=== PATIENT | male | born 1955 | race Caucasian/White ===

== ENCOUNTER 2023-12-07 16:37 | Inpatient (IN) | payer MEDICARE, SELFPAY ==
[2023-12-07] VITALS (8 sets, daily range): BP systolic 113–151; BP diastolic 74–97; PULSE 88–160; RESP 13–20; TEMP 36.4–36.8; O2SAT 93–99; BMI 25.1
--- NOTE | 2023-12-07 16:40 | XRR_ITS ---
PROCEDURE INFORMATION: Exam: XR Chest Exam date and time: 12/07/2023 4:51 PM Age: 68 years old Clinical indication: Cough; Additional info: Dyspnea/cough TECHNIQUE: Imaging protocol: Radiologic exam of the chest. Views: 1 view. COMPARISON: No relevant prior studies available. FINDINGS: Lungs: Lungs are clear. Pleural spaces: There is no pleural effusion or pneumothorax. Heart/Mediastinum: The cardiac silhouette is within normal limits of size given AP technique. 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 There is mild degenerative disease of the right shoulder. XR/XR chest 1V portable [id number] IMPRESSION: No acute findings.
--- NOTE | 2023-12-07 16:41 | ECG_ITS ---
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 Measurements Intervals [place] Rate: 163 P: 0 AR: 0 QRS: 11 QRSD: 69 T: 0 QT: 215 QTc: 355 Interpretive Statements ATRIAL FIBRILLATION WITH RAPID VENTRICULAR RESPONSE MARKED ST DEPRESSION, CONSIDER SUBENDOCARDIAL INJURY [0.2+ mV ST DEPRESSION] ACUTE IA No previous ECG available for comparison Electronically Signed On 12-07-2023 17:12:04 CDT by Maria Luisa Pillai M.D. [id number] f
--- NOTE | 2023-12-07 16:47 | ECG_ITS ---
[facility] Test Date: 2023-12-07 Pat Name: Michael Mcelroy Department: Room: Gender: Male Client Service Executive: : 1955 Requested By: Otto Carranza Order Number: [id number] Юлия MD: Maria Luisa Pillai M.D. Measurements Intervals [place] Rate: 158 P: 0 CT: 0 QRS: 20 QRSD: 77 T: 180 QT: 237 QTc: 384 Interpretive Statements SUPRAVENTRICULAR TACHYCARDIA MARKED ST DEPRESSION, CONSIDER SUBENDOCARDIAL INJURY [0.2+ mV ST DEPRESSION] ACUTE MD No previous ECG available for comparison Electronically Signed On 12-07-2023 17:14:55 CDT by Maria Luisa Pillai M.D. [id number] f
--- NOTE | 2023-12-07 16:47 | PC.NURSE ---
Glucose via fingerstick 126. EMS administered D10 en route.
--- NOTE | 2023-12-07 16:49 | W.ED.ARRPALP ---
HPI - Arrhythmia/Palpitations General: Chief Complaint: Arrhythmia/Palpitations Stated Complaint: hypoglycemia, hypotension Time Seen by Provider: 12/07/23 16:37 Source: patient Mode of arrival: ambulatory History of Present Illness: 68-year-old male presents emergency room via EMS with a rapid heart rate and hypoglycemia. EMS corrected the hypoglycemia in the field his blood sugar was initially 47 increased to 115. He intermittently had rapid heart rates in the 150s and 160s on arrival here he is in atrial fibrillation with rapid ventricular response. He denies any history of coronary disease or any history of arrhythmias. MD complaint: rapid heart beat and heart racing Duration: intermittent Severity: moderate Context: occurred during rest Review of Systems Const: Denies: fever(s) or chills Card: Reports: palpitations and irregular heart rhythm; Denies: chest pain Resp: Denies: dyspnea GI: Denies: abdominal pain : Denies: dysuria, urinary frequency or urinary urgency Musc: Denies: neck pain or back pain Skin/Breast: Denies: rash Physical Exam Const: GENERAL APPEARANCE: cooperative and comfortable ORIENTATION/CONSCIOUSNESS: Yes awake, Yes oriented to person, Yes oriented to place and Yes oriented to time HENMT: COMMON NORMALS: normocephalic, atraumatic and hearing grossly normal bilaterally HEAD & SCALP: normocephalic and atraumatic Resp: COMMON NORMALS: normal respiratory effort, No retractions, No use of accessory muscles and clear to auscultation bilaterally AUSCULTATION: clear to auscultation bilaterally Cardio: COMMON NORMALS: No murmurs present (Cardio) RATE: tachycardic RHYTHM: abnormal rhythm irregularly irregular GI: COMMON NORMALS: Soft to palpation and No hepatosplenomegaly present AUSCULTATION: Yes normoactive bowel sounds PALPATION: Yes Soft to palpation, No Tenderness to palpation present (GI), No Guarding due to palpation present (GI) and Yes No hepatosplenomegaly present Extremity: COMMON NORMALS: normal to inspection, capillary refill normal, no clubbing, cyanosis or edema, no calf tenderness and no pedal edema Neuro: SENSORIUM/ORIENTATION: Yes oriented to person, Yes oriented to place and Yes oriented to time Skin: COMMON NORMALS: no rashes or lesions noted GENERAL SKIN EXAM: no rashes or lesions noted Course Vital Signs: Vital signs: Vital Signs Temperature 98.2 F 12/07/23 16:41 Pulse Rate 99 12/07/23 17:30 Respiratory Rate 16 12/07/23 17:30 Blood Pressure 151/97 12/07/23 17:30 Pulse Oximetry 99 12/07/23 17:25 Oxygen Delivery Me thod Room Air 12/07/23 16:41 MDM - Arrhythmia/Palpitations Medical Decision Making Atrial fibrillation rapid ventricular response of subendocardial changes on his EKG initially well at a rapid rate these resolved with slowing his rate his blood pressure also improved. Because of subendocardial changes they did heparinize him he is intermittently in the normal sinus rhythm and back into atrial fibrillation now will admit discussed with hospitalist orders written continue Brenda maguire. Medical Records I reviewed the patient's medical records. Lab Data I reviewed the patient's lab results. 12/07/23 16:44 12/07/23 16:44 Radiology Impressions Chest X-Ray 12/07/23 16:40 IMPRESSION: No acute findings. Laboratory Results WBC 18.86 10^3/uL (3.29-11.43) H 12/07/23 16:44 RBC 2.96 10^6/uL (3.85-5.65) L 12/07/23 16:44 Hgb 8.70 g/dL (11.27-16.99) L 12/07/23 16:44 Hct 27.6 % (37-53) L 12/07/23 16:44 MCV 93.2 fl (82-101) 12/07/23 16:44 MCH 29.4 pg (27-33) 12/07/23 16:44 MCHC 31.5 g/dL (30-55) 12/07/23 16:44 RDW 15.2 % (12.1-15.1) H 12/07/23 16:44 Plt Count 364 10^3/cmm (157-399) 12/07/23 16:44 MPV 9.2 fL (7.4-10.4) 12/07/23 16:44 Neut % (Auto) 93.3 % 12/07/23 16:44 Lymph % (Auto) 2.7 % 12/07/23 16:44 [place] % (Auto) 2.8 % 12/07/23 16:44 Eos % (Auto) 0.1 % 12/07/23 16:44 Baso % (Auto) 0.1 % 12/07/23 16:44 Neut # (Auto) 17.61 10^3/uL (1.8-7.7) H 12/07/23 16:44 Lymph # (Auto) 0.5 10^3/uL (0.8-4.8) L 12/07/23 16:44 [place] # (Auto) 0.5 10^3/uL (0.2-0.9) 12/07/23 16:44 Eos # (Auto) 0.0 10^3/uL (0.0-0.8) 12/07/23 16:44 Baso # (Auto) 0.0 10^3/uL (0.0-0.1) 12/07/23 16:44 Nucleated RBC % (auto) 0 % 12/07/23 16:44 Nucleated RBCs # 0.0 /100WBC 12/07/23 16:44 Specimen Type Arterial 12/07/23 17:00 Sample Site Radial, left 12/07/23 17:00 ABG pH 7.38 (7.35-7.45) 12/07/23 17:00 ABG pCO2 29.1 mmHg (35-45) L 12/07/23 17:00 ABG pO2 106.0 mmHg (80.0-100.0) H 12/07/23 17:00 ABG PO2/FiO2 Ratio 0 12/07/23 17:00 ABG HCO3 17.3 mmol/L (22-26) L 12/07/23 17:00 ABG O2 Saturation 97.8 12/07/23 17:00 ABG Base Excess -6.8 mmol/L (-2.0-2.0) L 12/07/23 17:00 Angel Test Pos 12/07/23 17:00 A-a O2 Gradient 0.8 mmHg (5-10) L 12/07/23 17:00 Hematocrit 31.5 % (42-52) L 12/07/23 17:00 Hgb O2 Saturation 97.2 % (95-100) 12/07/23 17:00 Carboxyhemoglobin 0.1 %THgb (0.4-20.1) L 12/07/23 17:00 Methemoglobin 0.6 % (0.4-1.5) 12/07/23 17:00 Total Hemoglobin 10.3 g/dL (14-18) L 12/07/23 17:00 Sodium 141.0 mmol/L (131-143) 12/07/23 17:00 Potassium 3.4 mmol/L (3.5-5.0) L 12/07/23 17:00 Glucose 51.0 mg/dL (70-115) L 12/07/23 17:00 Ionized Calcium 1.2 mmol/L (1.1-1.4) 12/07/23 17:00 O2 Delivery Device Room air 12/07/23 17:00 FiO2 21.0 % 12/07/23 17:00 Service Establishment Attendant ID [place] 12/07/23 17:00 Sodium 136 mmol/L (136-145) 12/07/23 16:44 Potassium 3.2 mmol/L (3.5-5.1) L 12/07/23 16:44 Chloride 103 mmol/L (98-107) 12/07/23 16:44 Carbon Dioxide 17 mmol/L (22-29) L 12/07/23 16:44 Anion Gap 19.2 (5-19) H 12/07/23 16:44 BUN 36 mg/dL (8-23) H 12/07/23 16:44 Creatinine 1.6 mg/dL (0.7-1.2) H 12/07/23 16:44 GFR Calculation 43.1 mL/min (90-130) L 12/07/23 16:44 Glucose 119 mg/dL (65-115) H 12/07/23 16:44 Calculated Osmolality 291 mOsm/kg (285-295) 12/07/23 16:44 Lactic Acid 1.3 mmol/L (0.5-2.2) 12/07/23 16:44 Calcium 8.2 mg/dL (8.5-10.5) L 12/07/23 16:44 Total Bilirubin 0.2 mg/dL (0.15-1.2) 12/07/23 16:44 AST 17 U/L (0-40) 12/07/23 16:44 ALT 10 U/L (0-41) 12/07/23 16:44 Alkaline Phosphatase 125 U/L (40-130) 12/07/23 16:44 Creatine Kinase 228 U/L (39-308) 12/07/23 16:44 Troponin T Baseline 11 ng/L (0-15) 12/07/23 16:44 Total Protein 6.9 g/dL (6.6-8.7) 12/07/23 16:44 Albumin 2.7 g/dL (3.5-5.2) L 12/07/23 16:44 Globulin 4.2 g/dL (1.3-4.6) 12/07/23 16:44 Urine Color Yellow (Yellow) 12/07/23 17:04 Urine Appearance Cloudy (CLEAR) A 12/07/23 17:04 Urine pH 6 (5-7) 12/07/23 17:04 Ur Specific [place] 1.015 (1.005-1.030) 12/07/23 17:04 Urine Protein 1+ (Negative) H 12/07/23 17:04 Urine Glucose (UA) Norm (Normal) 12/07/23 17:04 Urine Ketones Negative (Negative) 12/07/23 17:04 Urine Blood 3+ (Negative) H 12/07/23 17:04 Urine Nitrate Negative (Negative) 12/07/23 17:04 Urine Bilirubin Neg (Negative) 12/07/23 17:04 Urine Urobilinogen Norm mg/dL (Negative) 12/07/23 17:04 Ur Leukocyte Esterase 2+ (Negative) H 12/07/23 17:04 Urine RBC 0-4 /hpf (0-2) H 12/07/23 17:04 Urine WBC Too numerous to cnt /hpf (0-5) H 12/07/23 17:04 Ur Squamous Epith Cells None /hpf (0-5) 12/07/23 17:04 Amorphous Sediment Not Reportable 12/07/23 17:04 Urine Bacteria 2+ /hpf (NONE) H 12/07/23 17:04 Urine Opiates Screen Negative ng/mL (Negative) 12/07/23 17:04 Ur Barbiturates Screen Negative ng/mL (Negative) 12/07/23 17:04 Ur Phencyclidine Scrn Negative ng/mL (Negative) 12/07/23 17:04 Ur Amphetamines Screen Negative ng/mL (Negative) 12/07/23 17:04 U Benzodiazepines Scrn Positive ng/mL (Negative) H 12/07/23 17:04 Urine Cocaine Screen Negative ng/mL (Negative) 12/07/23 17:04 U Marijuana (THC) Screen Negative ng/mL (Negative) 12/07/23 17:04 Ethyl Alcohol < 10 mg/dL (0-10) 12/07/23 16:44 Serum Ketones Negative (Negative) 12/07/23 16:44 All radiology interpretation(s) finalized by discharge Discharge Plan Discharge Patient Disposition: Admitted As Inpatient Clinical Impression: Atrial fibrillation, Hypoglycemia, Acute electrocardiogram changes Condition: Stable Coding Level of Care Code ED Iron Installer for Cullen Vasquez
--- NOTE | 2023-12-07 16:51 | PC.NURSE ---
Medication Delay: Heparin and Diltiazem ordered @1645 delayed d/t not being verified.
[2023-12-07 16:54] LABS: Basophils % 0.1 %; Eosinophils % 0.1 %; Hematocrit 27.6 % (37-53); Lymphocytes # 0.5 10^3/uL (0.8-4.8); Lymphocytes % 2.7 %; Mean Corpuscular HGB Conc 31.5 g/dL (30-55); Mean Corpuscular Hemoglobin 29.4 pg (27-33); Mean Corpuscular Volume 93.2 fl (82-101); Mean Platelet Volume 9.2 fL (7.4-10.4); Monocytes # 0.5 10^3/uL (0.2-0.9); Monocytes % 2.8 %; Neutrophils # 17.61 10^3/uL (1.8-7.7); Neutrophils % 93.3 %; Nucleated Red Blood Cells % 0 %; Platelet Count 364 10^3/cmm (157-399); Red Blood Count 2.96 10^6/uL (3.85-5.65); Red Cell Distribution Width 15.2 % (12.1-15.1); White Blood Count 18.86 10^3/uL (3.29-11.43)
[2023-12-07 17:10] LABS: Alanine Aminotransferase 10 U/L (0-41); Albumin Level 2.7 g/dL (3.5-5.2); Alkaline Phosphatase 125 U/L (40-130); Anion Gap 19.2 (5-19); Aspartate Amino Transferase 17 U/L (0-40); Blood Urea Nitrogen 36 mg/dL (8-23); Calcium 8.2 mg/dL (8.5-10.5); Carbon Dioxide 17 mmol/L (22-29); Chloride 103 mmol/L (98-107); Creatinine Clr Calc Pharmacy 47.9736; Globulin 4.2 g/dL (1.3-4.6); Glomerular Filtration Rate 43.1 mL/min (90-130); Glucose 119 mg/dL (65-115); Osmolality Calculated 291 mOsm/kg (285-295); Potassium 3.2 mmol/L (3.5-5.1); Sodium 136 mmol/L (136-145); Total Bilirubin 0.2 mg/dL (0.15-1.2); Total Protein 6.9 g/dL (6.6-8.7)
[2023-12-07 17:11] LABS: ABG PCO2 29.1 mmHg (35-45); ABG PH Result 7.38 (7.35-7.45); Alveolar-Arterial Oxygen Gradi 0.8 mmHg (5-10); Arterial Blood Gas Hematocrit 31.5 % (42-52); Base Excess ABG -6.8 mmol/L (-2.0-2.0); Blood Gas Allen Test Pos; Blood Gas Operator Identificat WALCI; Blood Gas Sample Site Radial, left; Blood Gas Sample Type Arterial; Carboxyhemoglobin 0.1 %THgb (0.4-20.1); HCO3 ABG 17.3 mmol/L (22-26); HGB O2 Sat 97.2 % (95-100); Ionized Calcium Level - ABG 1.2 mmol/L (1.1-1.4); Methemoglobin 0.6 % (0.4-1.5); Oxygen Device ROOM AIR; Oxygen Saturation ABG 97.8; PO2 FiO2 Ratio Arterial Blood 0; Potassium Level - ABG 3.4 mmol/L (3.5-5.0); Total Hemoglobin 10.3 g/dL (14-18)
[2023-12-07 17:12] LABS: Alcohol Level < 10 mg/dL (0-10)
[2023-12-07 17:13] LABS: Troponin(5th) Baseline 11 ng/L (0-15)
[2023-12-07] MEDS: dilTIAZem 5 mg/mL SDV 5 mL 20 MG IVP (17:15)
[2023-12-07 17:16] LABS: Ketone (Acetest) Serum Negative (Negative)
[2023-12-07] MEDS: heparin 5,000 unit/mL INJ 1 mL IV (17:16)
[2023-12-07 17:19] LABS: Creatine Phosphokinase 228 U/L (39-308); Lactic Sepsis W/Reflex 1.3 mmol/L (0.5-2.2)
[2023-12-07] MEDS: heparin drip 25,000 UNIT/500 ML PREMIX 22.8599999999999994 UNIT IV (17:21)
[2023-12-07] MEDS: dilTIAZem 100 MG in sodium chloride 0.9% (add-van) 100 ML IV (17:23)
[2023-12-07 17:43] LABS: Add Urine Microscopic? YES; Bilirubin Urine Neg (Negative); Blood Urine 3+ (Negative); Glucose Urine UA Norm (Normal); Ketones Urine Negative (Negative); Leukocyte Esterase Urine 2+ (Negative); Nitrate Urine Negative (Negative); Protein Urine 1+ (Negative); Specific Gravity, Urine 1.015 (1.005-1.030); Urine Appearance Cloudy (CLEAR); Urine Color Yellow (Yellow); Urobilinogen Urine Norm (Negative); pH Urine 6 (5-7)
[2023-12-07 17:45] LABS: Amphetamines Screen Urine Negative (Negative); Barbiturates Screen Urine Negative (Negative); Benzodiazepines Screen Urine Positive (Negative); Cocaine Screen Urine Negative (Negative); Opiate Screen Urine Negative (Negative); PCP Screen Urine Negative (Negative); THC Screen Urine Negative (Negative)
[2023-12-07 17:46] LABS: RBC Urine 0-4 /hpf (0-2); WBC Urine TOO NUMEROUS TO CNT /hpf (0-5)
[2023-12-07 17:47] LABS: Add Urine Culture? Yes; Bacteria Urine 2+ /hpf
[2023-12-07 18:01] LABS: Glucose Point of Care 123 mg/dL (70-110)
--- NOTE | 2023-12-07 18:02 | W.ED.ARRPALP ---
HPI - Arrhythmia/Palpitations General: Chief Complaint: Arrhythmia/Palpitations Stated Complaint: hypoglycemia, hypotension Time Seen by Provider: 12/07/23 16:37 Source: patient Mode of arrival: ambulatory History of Present Illness: 68-year-old male presents emergency room via EMS with complaints of hypoglycemia and hypotension and rapid heart rates. 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 When they arrived his blood sugar was at 47 he was treated with glucagon D10 and his blood sugar improved to 115 in the field when he arrived here his blood pressure was 126. On arrival here he is in A-fib with RVR with a heart rate in the 160s. Initial EKG shows subendocardial ischemia and VT 2 through V6 along with 1-3 and aVF. Patient denies chest pain. He denies any history of atrial fibrillation or coronary artery disease. MD complaint: rapid heart beat and heart racing Context: occurred during rest Course Vital Signs: Vital signs: Vital Signs Temperature 98.2 F 12/07/23 16:41 Pulse Rate 99 12/07/23 17:30 Respiratory Rate 16 12/07/23 17:30 Blood Pressure 151/97 12/07/23 17:30 Pulse Oximetry 99 12/07/23 17:25 Oxygen Delivery Me thod Room Air 12/07/23 16:41 MDM - Arrhythmia/Palpitations Medical Decision Making Patient presents with hypoglycemia initially in the field that were corrected he still in A-fib with subendocardial changes while the rate was high once her rate was corrected hypotension and subendocardial changes both resolved. Patient does have significant leukocytosis has a cystitis on UA cultures done and was started on ceftriaxone. Discussed with hospitalist orders written Medical Records I reviewed the patient's medical records. Lab Data I reviewed the patient's lab results. 12/07/23 16:44 12/07/23 16:44 Radiology Impressions Chest X-Ray 12/07/23 16:40 IMPRESSION: No acute findings. Laboratory Results WBC 18.86 10^3/uL (3.29-11.43) H 12/07/23 16:44 RBC 2.96 10^6/uL (3.85-5.65) L 12/07/23 16:44 Hgb 8.70 g/dL (11.27-16.99) L 12/07/23 16:44 Hct 27.6 % (37-53) L 12/07/23 16:44 MCV 93.2 fl (82-101) 12/07/23 16:44 MCH 29.4 pg (27-33) 12/07/23 16:44 MCHC 31.5 g/dL (30-55) 12/07/23 16:44 RDW 15.2 % (12.1-15.1) H 12/07/23 16:44 Plt Count 364 10^3/cmm (157-399) 12/07/23 16:44 MPV 9.2 fL (7.4-10.4) 12/07/23 16:44 Neut % (Auto) 93.3 % 12/07/23 16:44 Lymph % (Auto) 2.7 % 12/07/23 16:44 [place] % (Auto) 2.8 % 12/07/23 16:44 Eos % (Auto) 0.1 % 12/07/23 16:44 Baso % (Auto) 0.1 % 12/07/23 16:44 Neut # (Auto) 17.61 10^3/uL (1.8-7.7) H 12/07/23 16:44 Lymph # (Auto) 0.5 10^3/uL (0.8-4.8) L 12/07/23 16:44 [place] # (Auto) 0.5 10^3/uL (0.2-0.9) 12/07/23 16:44 Eos # (Auto) 0.0 10^3/uL (0.0-0.8) 12/07/23 16:44 Baso # (Auto) 0.0 10^3/uL (0.0-0.1) 12/07/23 16:44 Nucleated RBC % (auto) 0 % 12/07/23 16:44 Nucleated RBCs # 0.0 /100WBC 12/07/23 16:44 Specimen Type Arterial 12/07/23 17:00 Sample Site Radial, left 12/07/23 17:00 ABG pH 7.38 (7.35-7.45) 12/07/23 17:00 ABG pCO2 29.1 mmHg (35-45) L 12/07/23 17:00 ABG pO2 106.0 mmHg (80.0-100.0) H 12/07/23 17:00 ABG PO2/FiO2 Ratio 0 12/07/23 17:00 ABG HCO3 17.3 mmol/L (22-26) L 12/07/23 17:00 ABG O2 Saturation 97.8 12/07/23 17:00 ABG Base Excess -6.8 mmol/L (-2.0-2.0) L 12/07/23 17:00 Angel Test Pos 12/07/23 17:00 A-a O2 Gradient 0.8 mmHg (5-10) L 12/07/23 17:00 Hematocrit 31.5 % (42-52) L 12/07/23 17:00 Hgb O2 Saturation 97.2 % (95-100) 12/07/23 17:00 Carboxyhemoglobin 0.1 %THgb (0.4-20.1) L 12/07/23 17:00 Methemoglobin 0.6 % (0.4-1.5) 12/07/23 17:00 Total Hemoglobin 10.3 g/dL (14-18) L 12/07/23 17:00 Sodium 141.0 mmol/L (131-143) 12/07/23 17:00 Potassium 3.4 mmol/L (3.5-5.0) L 12/07/23 17:00 Glucose 51.0 mg/dL (70-115) L 12/07/23 17:00 Ionized Calcium 1.2 mmol/L (1.1-1.4) 12/07/23 17:00 O2 Delivery Device Room air 12/07/23 17:00 FiO2 21.0 % 12/07/23 17:00 Cad Librarian ID [place] 12/07/23 17:00 Sodium 136 mmol/L (136-145) 12/07/23 16:44 Potassium 3.2 mmol/L (3.5-5.1) L 12/07/23 16:44 Chloride 103 mmol/L (98-107) 12/07/23 16:44 Carbon Dioxide 17 mmol/L (22-29) L 12/07/23 16:44 Anion Gap 19.2 (5-19) H 12/07/23 16:44 BUN 36 mg/dL (8-23) H 12/07/23 16:44 Creatinine 1.6 mg/dL (0.7-1.2) H 12/07/23 16:44 GFR Calculation 43.1 mL/min (90-130) L 12/07/23 16:44 Glucose 119 mg/dL (65-115) H 12/07/23 16:44 POC Glucose 123 mg/dL (70-110) H 12/07/23 17:57 Calculated Osmolality 291 mOsm/kg (285-295) 12/07/23 16:44 Lactic Acid 1.3 mmol/L (0.5-2.2) 12/07/23 16:44 Calcium 8.2 mg/dL (8.5-10.5) L 12/07/23 16:44 Total Bilirubin 0.2 mg/dL (0.15-1.2) 12/07/23 16:44 AST 17 U/L (0-40) 12/07/23 16:44 ALT 10 U/L (0-41) 12/07/23 16:44 Alkaline Phosphatase 125 U/L (40-130) 12/07/23 16:44 Creatine Kinase 228 U/L (39-308) 12/07/23 16:44 Troponin T Baseline 11 ng/L (0-15) 12/07/23 16:44 Total Protein 6.9 g/dL (6.6-8.7) 12/07/23 16:44 Albumin 2.7 g/dL (3.5-5.2) L 12/07/23 16:44 Globulin 4.2 g/dL (1.3-4.6) 12/07/23 16:44 Urine Color Yellow (Yellow) 12/07/23 17:04 Urine Appearance Cloudy (CLEAR) A 12/07/23 17:04 Urine pH 6 (5-7) 12/07/23 17:04 Ur Specific [place] 1.015 (1.005-1.030) 12/07/23 17:04 Urine Protein 1+ (Negative) H 12/07/23 17:04 Urine Glucose (UA) Norm (Normal) 12/07/23 17:04 Urine Ketones Negative (Negative) 12/07/23 17:04 Urine Blood 3+ (Negative) H 12/07/23 17:04 Urine Nitrate Negative (Negative) 12/07/23 17:04 Urine Bilirubin Neg (Negative) 12/07/23 17:04 Urine Urobilinogen Norm mg/dL (Negative) 12/07/23 17:04 Ur Leukocyte Esterase 2+ (Negative) H 12/07/23 17:04 Urine RBC 0-4 /hpf (0-2) H 12/07/23 17:04 Urine WBC Too numerous to cnt /hpf (0-5) H 12/07/23 17:04 Ur Squamous Epith Cells None /hpf (0-5) 12/07/23 17:04 Amorphous Sediment Not Reportable 12/07/23 17:04 Urine Bacteria 2+ /hpf (NONE) H 12/07/23 17:04 Urine Opiates Screen Negative ng/mL (Negative) 12/07/23 17:04 Ur Barbiturates Screen Negative ng/mL (Negative) 12/07/23 17:04 Ur Phencyclidine Scrn Negative ng/mL (Negative) 12/07/23 17:04 Ur Amphetamines Screen Negative ng/mL (Negative) 12/07/23 17:04 U Benzodiazepines Scrn Positive ng/mL (Negative) H 12/07/23 17:04 Urine Cocaine Screen Negative ng/mL (Negative) 12/07/23 17:04 U Marijuana (THC) Screen Negative ng/mL (Negative) 12/07/23 17:04 Ethyl Alcohol < 10 mg/dL (0-10) 12/07/23 16:44 Serum Ketones Negative (Negative) 12/07/23 16:44 All radiology interpretation(s) finalized by discharge Discharge Plan Discharge Patient Disposition: Admitted As Inpatient Clinical Impression: Atrial fibrillation, Hypoglycemia, Acute electrocardiogram changes, Cystitis Condition: Stable Coding Level of Care Code ED Parachutist/Combatant Diver Qualified for Cullen Vasquez
[2023-12-07 18:11] LABS: Chol HDL Ratio 3.59 mg/dL (1.0-5.00); Cholesterol 140 mg/dL (0-200); HDL Cholesterol 39 mg/dL (60-100); LDL Cholesterol Calculated 74 mg/dL (50-129); Triglycerides 134 mg/dL (0-150)
[2023-12-07] MEDS: sodium chloride 0.9% 500 ML 999 ML IV (18:16)
--- NOTE | 2023-12-07 18:16 | PC.NURSE ---
Medication Delay: Rochepin ordered @1802 delayed d/t needing blood cultures drawn.
--- NOTE | 2023-12-07 18:29 | PC.NURSE ---
Attempted Report x1 to [facility] @1969, no answer.
--- NOTE | 2023-12-07 18:34 | PM.HP ---
Providers/Chief Complaint Admitting Physician: Linnea Kathleen MD Chief Complaint: hypoglycemia, hypotension History of Present Illness Michael Mcelroy is a 68 year old male, typically resident of [facility] by occupation, currently passing through the [place] area. He was sitting down to have lunch today when his reported patient suddenly became very dizzy and became unresponsive. EMS was called in, patient was noted to be hypoglycemic and he was brought into the emergency room for the same. Upon arrival his blood sugar was 47, currently improved to 115 after being given glucagon and D10. He was also found to have A-fib with RVR with heart rate in the 160s. Patient tells me he is not a diabetic. However also states that he does not know any of his medications. States that his would be coming by later with a list of his medications. Does not offer any other prior history. Denies known history of atrial fibrillation. Denies history of coronary artery disease. Denies any current chest pain dyspnea palpitations prior to the episode today. He is currently on a Cardizem infusion with improvement in his heart rate. Denies any recent fever chills nausea vomiting. Review of Systems General: Reports: 10 or more systems reviewed and unremarkable except in HPI and below Const: Denies: fever(s), chills or body aches Eyes: Denies: change in vision, blurry vision or photophobia ENMT: Reports: hoarseness; Denies: throat pain, enlarged tonsils, odynophagia or nasal congestion Card: Denies: chest pain, palpitations, irregular heart rhythm, edema, swelling of feet/ankles, lightheadedness, pre-syncope, dyspnea on exertion or orthopnea Resp: Denies: dyspnea, productive cough, non-productive cough, wheezing, stridor, pain on inspiration, change in phlegm color, hemoptysis or chest congestion GI: Denies: abdominal pain, nausea, vomiting, hematemesis, coffee ground emesis, dysphagia, heartburn, diarrhea, constipation, GI cramping, change in stool character, hematochezia or melena : Denies: flank pain, dysuria, urinary frequency, urinary urgency, urinary hesitancy or hematuria Musc: Denies: neck pain, back pain, extremity pain, joint swelling, joint warmth or deformity Neuro: Denies: headache(s), numbness in extremities, weakness in extremities, sensory changes, difficulty walking, frequent falls, dizziness, vertigo, behavioral changes, Slurred speech present or seizure-like activity Psych: Denies: anxiety, depression, suicidal ideation or homicidal ideation Endo: Denies: polyuria, polydipsia, tired all the time, cold intolerance or hot flashes Laurent/Lymph: Denies: easy bruising or easy bleeding Medications/Allergies Home Medications Medication Instructions Recorded Confirmed Last Taken Type ascorbic acid (vitamin C) 250 mg 250 mg PO DAILY 12/08/23 12/08/23 Unknown History tablet (Vitamin C) calcium carbonate 600 mg calcium 600 mg PO DAILY 12/08/23 12/08/23 Unknown History (1,500 mg) tablet (Calcium) diclofenac sodium 75 mg 75 mg PO BID 12/08/23 12/08/23 Unknown History tablet,delayed release enzalutamide 40 mg tablet (Xtandi) 160 mg PO QPM 12/08/23 12/08/23 Unknown History glimepiride 2 mg tablet 2 mg PO DAILY 12/08/23 12/08/23 Unknown History rosuvastatin 20 mg tablet 20 mg PO QPM 12/08/23 12/08/23 Unknown History sulfamethoxazole 800 1 tab PO QPM 12/08/23 12/08/23 Unknown History mg-trimethoprim 160 mg tablet tamsulosin 0.4 mg capsule 0.4 mg PO QPM 12/08/23 12/08/23 Unknown History tolterodine 4 mg capsule,extended 4 mg PO QPM 12/08/23 12/08/23 Unknown History release 24 hr tramadol 50 mg tablet 50 mg PO BID PRN Pain 12/08/23 12/08/23 Unknown History vitamin B12 0.5 mg-folic acid 1 mg 2 tab PO DAILY 12/08/23 12/08/23 Unknown History tablet Allergies Allergy/AdvReac Type Severity Reaction Status Date / Time No Known Allergies Allergy Verified 12/07/23 18:27 Vitals/I&O/Wt Last Vital Signs Temp 98.2 F 12/07/23 16:41 Pulse 99 12/07/23 17:30 Resp 16 12/07/23 17:30 BP 151/97 12/07/23 17:30 Pulse Ox 99 12/07/23 17:25 O2 Del Method Room Air 12/07/23 16:41 12/07/23 12/07/23 12/07/23 06:59 14:59 22:59 Intake Total 4.417 / 4.417 Balance 4.417 / 4.417 Weight last 48 hrs Weight 81.647 kg Physical Exam Narrative: General: No acute distress, AO x3 HEENT: PERRLA, pupils bilaterally equal and reactive, pallors not present Chest: Normal vesicular breath sounds, no added sounds, equal good air entry bilaterally CVS: S1-S2 regular, no murmurs, no tachycardia, no gallops, no rubs Abdomen: Soft, nontender, no organomegaly, bowel sounds present Neuro: No focal deficits, no facial deformity, AO x3, power 5/5 in all limbs Data 12/08/23 06:32 12/08/23 06:32 Micro: Microbiology 12/07/23 17:10 Blood Culture - Preliminary Blood SPECIMEN COLLECTED A&P Assessment and plan (1) Atrial fibrillation: Atrial fibrillation with heart rate 1 50-1 60 upon admission. New diagnosis for the patient Noted to have ST depression with tachycardia, this appears to have resolved with improvement in heart rate. Baseline troponin currently at 11. Denies any chest pain. Low concern for ACS at this point in time. Will trend troponins at 2 and 6 hours. Currently started on a heparin infusion in the emergency room which we will continue. Discussed starting oral DOAC's with him, states that he would like to defer decisions until his comes in with a list of his existing medications. Currently on a Cardizem infusion which we will continue. Heart rate is improving currently on Cardizem at 5 mg an hour. Overlap with p.o. Cardizem 30 mg every 6 hours and monitor for response. Echocardiogram given new onset A-fib. (2) Hypoglycemia: Hypoglycemia, blood sugar at 47 initially. Currently he is symptomatically improved after correction in his blood sugar Continue to check blood sugar hourly and then switch to every 4 hours once stable. Encourage oral intake. Patient states he is not a known diabetic however does not know list of his medications either. We will await his to bring these in. If not available will reach out to his pharmacy in the morning hours. Check HbA1c. (3) Cystitis: UA positive for 2+ leukocyte esterase, numerous WBCs Denies any current dysuria. Denies any recent fever chills nausea vomiting. Denies any history of recurrent UTIs. Urine culture ordered Start ceftriaxone 1 g IV every 24 hours while pending results of urine culture Obtain stat blood cultures. Leukocytosis may be attributable to dehydration versus acute cystitis. Plan DVT prophylaxis: Currently on a heparin drip which will suffice Full code Attestations Medical Necessity Statement*: Anticipate greater than 2 midnight admission for new onset A-fib with RVR, hypoglycemia needing further evaluation, UTI needing IV antibiotics. Coding Level of Care Code Acute Code for Chg Fwd High MDM includes number and complexity of problems actively addressed during encounter, amount and/or complexity of data reviewed/ordered and described risk of complication, morbidity or mortality of management as documented Diagnoses Atrial fibrillation I48.91 Hypoglycemia E16.2 Cystitis N30.90
--- NOTE | 2023-12-07 18:40 | PC.NURSE ---
Medication Delay: Diltiazem 30mg PO and Rocephin 1,000mg @1845 delayed d/t not being verified.
--- NOTE | 2023-12-07 18:42 | PC.NURSE ---
Medication Delay: blood cultures not drawn at this time, Rocephin ordered @1802 delayed. x2 unsuccessful blood draw attempts.
--- NOTE | 2023-12-07 18:46 | ECG_ITS ---
[facility] Test Date: 2023-12-07 Pat Name: Michael Mcelroy Department: Room: Gender: Male [employer]: : 1955 Requested By: Otto Carranza Order Number: [id number] Юлия MD: Maria Luisa Pillai M.D. Measurements Intervals [place] Rate: 109 P: 63 [place]: 136 QRS: 28 QRSD: 77 T: 51 QT: 355 QTc: 479 Interpretive Statements SINUS TACHYCARDIA WITH OCCASIONAL VENTRICULAR PREMATURE COMPLEXES WITH OCCASIONAL SUPRAVENTRICULAR PREMATURE COMPLEXES MODERATE ST DEPRESSION [0.05+ mV ST DEPRESSION] Compared to ECG 12/07/2023 16:47:45 Ventricular premature complex(es) now present Supraventricular tachycardia no longer present ST (T wave) deviation still present Electronically Signed On 12-07-2023 17:41:51 CDT by Maria Luisa Pillai M.D. [email or web address]
[2023-12-07 19:18] LABS: Troponin 5 2HR 10.04 ng/L (0-15); Troponin 5 2HR Delta -0.96 ABS# (0-10)
[2023-12-07 20:34] LABS: Glucose Point of Care 37 mg/dL (70-110)
[2023-12-07 20:34] LABS: Glucose Point of Care 31 mg/dL (70-110)
[2023-12-07] MEDS: glucagon 1 mg/mL KIT 1 mL IM (20:40)
[2023-12-07] MEDS: dextrose 5 % 500 ML 1000 ML IV (20:45)
[2023-12-07 20:49] LABS: Estmated Average Glucose 117; Hemoglobin A1C 5.7 % (4.0-6.0)
[2023-12-07] MEDS: dilTIAZem 30 mg Tablet PO (21:06)
[2023-12-07] MEDS: dextrose 10% 1,000 ML 75 ML IV (21:08)
[2023-12-07] MEDS: cefTRIAXone 1,000 MG in sodium chloride 0.9% (plus) 50 ML 100 MG IV (21:12)
[2023-12-07 22:01] LABS: Glucose Point of Care 37 mg/dL (70-110)
[2023-12-07 22:01] LABS: Glucose Point of Care 116 mg/dL (70-110)
[2023-12-07 22:01] LABS: Glucose Point of Care 80 mg/dL (70-110)
[2023-12-07 22:23] LABS: Glucose Point of Care 153 mg/dL (70-110)
[2023-12-07 23:14] LABS: Glucose Point of Care 120 mg/dL (70-110)
[2023-12-07 23:58] LABS: Troponin 5 6HR 14.52 ng/L (0-15); Troponin 5 6HR Delta 3.52 ng/L (0-12)
[2023-12-07 23:59] LABS: Partial Thromboplastin Time 86.3 SECONDS (23.9-36.7)
[2023-12-08] VITALS (9 sets, daily range): BP systolic 102–142; BP diastolic 53–86; PULSE 80–124; RESP 16–31; TEMP 36.6–37.4; O2SAT 95–99
[2023-12-08] MEDS: dilTIAZem 30 mg Tablet PO ×3 (00:24→11:25)
[2023-12-08 01:33] LABS: Glucose Point of Care 86 mg/dL (70-110)
[2023-12-08 01:33] LABS: Glucose Point of Care 63 mg/dL (70-110)
[2023-12-08 03:07] LABS: Glucose Point of Care 68 mg/dL (70-110)
[2023-12-08 03:07] LABS: Glucose Point of Care 66 mg/dL (70-110)
[2023-12-08] MEDS: dextrose 10% 250 ML 1000 ML IV (04:44)
[2023-12-08 05:17] LABS: Glucose Point of Care 119 mg/dL (70-110)
[2023-12-08 05:17] LABS: Glucose Point of Care 54 mg/dL (70-110)
[2023-12-08 05:17] LABS: Glucose Point of Care 48 mg/dL (70-110)
[2023-12-08 06:50] LABS: Basophils % 0.2 %; Eosinophils # 0.1 10^3/uL (0.0-0.8); Eosinophils % 0.3 %; Hematocrit 29.3 % (37-53); Lymphocytes # 0.9 10^3/uL (0.8-4.8); Lymphocytes % 4.8 %; Mean Corpuscular HGB Conc 31.7 g/dL (30-55); Mean Corpuscular Hemoglobin 29.2 pg (27-33); Mean Corpuscular Volume 91.8 fl (82-101); Mean Platelet Volume 9.2 fL (7.4-10.4); Monocytes # 0.5 10^3/uL (0.2-0.9); Monocytes % 2.7 %; Neutrophils # 17.48 10^3/uL (1.8-7.7); Neutrophils % 90.8 %; Nucleated Red Blood Cells % 0 %; Platelet Count 400 10^3/cmm (157-399); Red Blood Count 3.19 10^6/uL (3.85-5.65); Red Cell Distribution Width 15.1 % (12.1-15.1); White Blood Count 19.23 10^3/uL (3.29-11.43)
[2023-12-08 06:53] LABS: Glucose Point of Care 70 mg/dL (70-110)
[2023-12-08 06:53] LABS: Glucose Point of Care 43 mg/dL (70-110)
[2023-12-08 07:03] LABS: Chloride 104 mmol/L (98-107); Potassium 3.8 mmol/L (3.5-5.1); Sodium 136 mmol/L (136-145)
[2023-12-08 07:07] LABS: Partial Thromboplastin Time 78.5 SECONDS (23.9-36.7)
[2023-12-08 07:24] LABS: Alanine Aminotransferase 12 U/L (0-41); Alkaline Phosphatase 127 U/L (40-130); Anion Gap 19.8 (5-19); Aspartate Amino Transferase 18 U/L (0-40); Blood Urea Nitrogen 26 mg/dL (8-23); Calcium 8.6 mg/dL (8.5-10.5); Carbon Dioxide 16 mmol/L (22-29); Osmolality Calculated 283 mOsm/kg (285-295); Total Bilirubin 0.2 mg/dL (0.15-1.2)
[2023-12-08 07:29] LABS: Glucose 38 mg/dL (65-115)
[2023-12-08 07:48] LABS: Glucose Point of Care 96 mg/dL (70-110)
[2023-12-08] MEDS: aspirin 81 mg EC Tablet PO (08:33)
[2023-12-08] MEDS: pantoprazole DR 40 mg Tablet PO (08:33)
[2023-12-08] MEDS: dextrose 10% 1,000 ML 125 ML IV (09:07)
[2023-12-08 09:21] LABS: Glucose Point of Care 55 mg/dL (70-110)
[2023-12-08 10:09] LABS: Glucose Point of Care 74 mg/dL (70-110)
[2023-12-08] MEDS: glucagon 1 mg/mL KIT 1 mL IM (11:24)
[2023-12-08] MEDS: meropenem 1,000 MG in sodium chloride 0.9% (plus) 50 ML 100 MG IV ×2 (11:24→21:32)
[2023-12-08 11:30] LABS: Glucose Point of Care 92 mg/dL (70-110)
[2023-12-08] MEDS: dextrose 10% 1,000 ML 50 ML IV (11:45)
--- NOTE | 2023-12-08 11:58 | CTR_ITS ---
PROCEDURE INFORMATION: Exam: CT Abdomen And Pelvis Without Contrast Exam date and time: 12/08/2023 3:48 PM Age: 68 years old Clinical indication: Abdominal pain; Generalized; Additional info: Pyelonephritis, evaluate for obstruction, p/w recurrent cytsitis, suspected pyelonephritis, h/o TECHNIQUE: Imaging protocol: Computed tomography of the abdomen and pelvis without contrast. Radiation optimization: All CT scans at this facility use at least one of these dose optimization techniques: automated exposure control; mA and/or kV adjustment per patient size (includes targeted exams where dose is matched to clinical indication); or iterative reconstruction. COMPARISON: CR (CHEST, ) 12/07/2023 4:51 PM RADIATION DOSE METRICS: Total DLP (mGy-cm): 714.63 FINDINGS: Tubes, catheters and devices: Right sacral neural stimulator incidentally noted. Lungs: Lung bases are clear. Heart: There is mild cardiac enlargement. There is trace pericardial effusion. Liver: The liver is normal. Gallbladder and bile ducts: The gallbladder is decompressed, preventing meaningful evaluation of wall thickness. There is a calcified stone in the gallbladder lumen. There is no intrahepatic or extrahepatic bile duct dilation. Pancreas: There is moderate atrophy of the pancreas. Spleen: The spleen is unremarkable. Adrenal glands: Two left adrenal nodules measuring 16 and 20 mm with low attenuation consistent with benign lipid rich adenomas. No follow-up imaging these nodules is necessary. Kidneys and ureters: Moderate right hydronephrosis and dilated renal pelvis. Focal narrowing at the origin of the right ureter suggesting chronic partial UPJ obstruction. Progressively distended distal right ureter to the ureterovesical junction. No stones. Moderate left hydronephrosis and diffuse left hydroureter to the ureterovesical junction. No stones. There is an intermediate density 11 mm nodule or cyst exophytic from the upper pole of the right kidney visible on axial series 3, image 63. There is mild bilateral perinephric edema of unknown significance. Stomach and bowel: The stomach is nondistended, limiting assessment of wall thickness. The small bowel is nondilated. There is mild sigmoid colonic diverticulosis without evidence of diverticulitis. Appendix: The appendix is normal. Intraperitoneal space: There is no free air or significant intraperitoneal free fluid. Vasculature: There is moderate aortic atherosclerotic disease. Lymph nodes: There are enlarged left periaortic retroperitoneal lymph nodes measuring up to 16 x 13 mm on axial series 3, image 91. No mesenteric, pelvic, inguinal or benja hepatis lymphadenopathy. Urinary bladder: There is mild discontinuous thickening of the bladder wall. Reproductive: There is a TURP defect in the prostate. There is a Simon catheter in the penis. The bulb is inflated in the proximal penile urethra. Bones/joints: There is mild degenerative disease in the lumbar spine. Soft tissues: There are small bilateral fat containing inguinal hernias. There is soft tissue edema, mixed density fluid and gas in the perineum extending into the scrotum. there is a right posterior scrotal wall fluid collection containing an air-fluid level measuring 5.1 x 2.[address]/CT kidney stone 59617 IMPRESSION: 1. Simon catheter balloon inflated in the penile urethra. There is associated traumatic rupture of the penile urethra, with gas, fluid and blood extending into the perineum and posterior scrotal wall. 2. Fluid collection in the posterior scrotal wall. Probable mixed seroma/hematoma. Developing abscess not excluded. 3. Moderate bilateral hydronephrosis and hydroureter. Findings are likely related to elevated intravesical pressure from bladder outlet obstruction. No calcified ureteral stone. Bilateral distal ureter stricture and reflux not excluded. 4. Mild discontinuous bladder wall thickening. Nonspecific finding. Muscular hypertrophy is most likely. Bladder neoplasm not excluded. 5. Indeterminate 11 mm right renal lesion. Recommend non-emergent MRI without and with contrast or non-emergent CT without and with contrast. MRI is preferred for masses under 1.5 cm. 6. Localized left upper retroperitoneal lymphadenopathy. This may be neoplastic or reactive. 7. Incidental findings above. COMMENTS: 1. Consistent with the [employer]'s Incidental Findings Committee white paper (J Am Gianni Radiol 2017): For any incidental adrenal lesion greater than or equal to 1 cm but less than or equal to 4 cm classified in this report as benign, likely benign, or containing fat (including classification as an adenoma or myelolipoma), no follow-up imaging is recommended per consensus recommendations based on imaging criteria. Further lab evaluation could be pursued if warranted based on clinical findings. 2. Consistent with the [employer]'s Incidental Findings Committee white paper (J Am Gianni Radiol 2018): Any incidental renal lesion less than 1 cm or classified as too small to characterize, or any incidental cystic renal lesion characterized as simple-appearing, is likely benign. No follow-up imaging is recommended for these lesions per consensus recommendations based on imaging criteria.
[2023-12-08 13:17] LABS: Partial Thromboplastin Time 47.6 SECONDS (23.9-36.7)
--- NOTE | 2023-12-08 13:24 | PM.PN ---
Subjective Subjective: Patient's medication list was available eventually. He offers more history today. He has a history of prostate cancer, status postradiation therapy resulting in chronic cystitis. He has a history of recurrent UTIs for which she is on chronic suppression with Bactrim daily. He also is on glimepiride though still continues to do send denies any known history of diabetes mellitus. Likely that his hypoglycemia may be related to glimepiride. HbA1c at 5.7. Overnight he had hypoglycemic episodes for which she needed bolus D10 infusions. Now also given glucagon. Encourage p.o. intake. Continues to have low-grade fever 99.3. Persisting leukocytosis at 19,000. He converted to sinus rhythm therefore Cardizem drip was discontinued this morning. While at rest his heart rate ranges between 86-100 on oral Cardizem, however with minimal exertion such as moving from bed to bedside commode his heart rate goes up to 1 80-1 90 appearing to be SVT. Troponin series negative Medications: Reviewed: Yes Vitals/I&O/Wt Last Vital Signs Temp 99.0 F 12/08/23 11:24 Pulse 124 H 12/08/23 11:24 Resp 20 H 12/08/23 11:24 BP 126/76 12/08/23 11:24 Pulse Ox 97 12/08/23 11:24 O2 Del Method Room Air 12/08/23 11:24 O2 Flow Rate 2 12/08/23 00:00 12/07/23 12/08/23 12/08/23 22:59 06:59 14:59 Intake Total 1082.584 / 1082.584 406.972 / 4351.458 5253.75 / 1188.75 Balance 1082.584 / 1082.584 406.972 / 4979.869 1947.75 / 1188.75 Weight last 48 hrs Weight 82.463 kg Weight 80.966 kg Weight 81.647 kg Physical Exam Narrative: General: No acute distress, AO x3 HEENT: PERRLA, pupils bilaterally equal and reactive, pallors not present Chest: Normal vesicular breath sounds, no added sounds, equal good air entry bilaterally CVS: S1-S2 regular, no murmurs, no tachycardia, no gallops, no rubs Abdomen: Soft, nontender, no organomegaly, bowel sounds present Neuro: No focal deficits, no facial deformity, AO x3, power 5/5 in all limbs Data 12/08/23 06:32 12/08/23 06:32 Micro: Microbiology 12/07/23 18:50 Blood Culture - Preliminary Blood SPECIMEN COLLECTED 12/07/23 17:10 Blood Culture - Preliminary Blood SPECIMEN COLLECTED A&P Assessment and plan (1) Atrial fibrillation: Atrial fibrillation with heart rate 1 50-1 60 upon admission. New diagnosis for the patient Noted to have ST depression with tachycardia, this appears to have resolved with improvement in heart rate. Baseline troponin currently at 11. Denies any chest pain. Low concern for ACS at this point in time. Will trend troponins at 2 and 6 hours. Currently started on a heparin infusion in the emergency room which we will continue. Discussed starting oral DOAC's with him, states that he would like to defer decisions until his comes in with a list of his existing medications. Currently on a Cardizem infusion which we will continue. Heart rate is improving currently on Cardizem at 5 mg an hour. Overlap with p.o. Cardizem 30 mg every 6 hours and monitor for response. Echocardiogram given new onset A-fib. (2) Hypoglycemia: Hypoglycemia, blood sugar at 47 initially. Currently he is symptomatically improved after correction in his blood sugar Continue to check blood sugar hourly and then switch to every 4 hours once stable. Encourage oral intake. Patient states he is not a known diabetic however does not know list of his medications either. We will await his to bring these in. If not available will reach out to his pharmacy in the morning hours. Check HbA1c. (3) Cystitis: UA positive for 2+ leukocyte esterase, numerous WBCs Denies any current dysuria. Denies any recent fever chills nausea vomiting. Denies any history of recurrent UTIs. Urine culture ordered Start ceftriaxone 1 g IV every 24 hours while pending results of urine culture Obtain stat blood cultures. Leukocytosis may be attributable to dehydration versus acute cystitis. Plan DVT prophylaxis: Currently on a heparin drip which will suffice Full code Plan for today December 08, 2023. Persistent leukocytosis at 19,000. New history provided today including that of prostate cancer, chronic cystitis on chronic antibiotic suppression. High risk of infection with resistant organisms. Discontinue ceftriaxone and switch empiric coverage to meropenem 1 g IV every [address] [facility] imaging to evaluate for any underlying hydronephrosis. Patient continues to have runs of SVT intermittently with minimal exertion. Heart rate goes up to 1 80-1 90. On telemetry appearing SVT rather than A-fib today. Will start amiodarone infusion to better control his heart rate. Amiodarone chosen over beta-blockers or calcium channel blockers given patient had intermittent hypotension last night. At the time of this assessment his blood pressure is 126/76, heart rate of 124. Blood sugars are better controlled this morning. Currently on D10 infusion at 50 cc an hour. Also received a dose of glucagon 1 mg IM. Encourage p.o. intake. Change diabetic diet to regular diet given his A1c is only at 5.7. Discontinue heparin drip. Changed to Lovenox 1 mg/kg every 12 hours. Attestations Medical Necessity Statement*: Needs continued admission for urinary tract infection, CT abdomen to evaluate for any obstruction, starting amiodarone infusion for uncontrolled heart rate. Coding Level of Care Code Acute Code for [facility] Fwd Diagnoses Atrial fibrillation I48.91 Hypoglycemia E16.2 Cystitis N30.90
[2023-12-08] MEDS: enoxaparin 80 mg/0.8 mL Syringe SUBCUT (13:28)
[2023-12-08] MEDS: amiodarone 150 MG/100 ML PREMIX 400 MG IV (13:28)
[2023-12-08 13:36] LABS: Glucose Point of Care 121 mg/dL (70-110)
[2023-12-08] MEDS: TRAMadol 50 mg Tablet PO (15:06)
[2023-12-08 15:21] LABS: Glucose Point of Care 125 mg/dL (70-110)
[2023-12-08] MEDS: morphine 4 mg/mL SDV 1 mL 2 MG IVP (16:19)
[2023-12-08] MEDS: atorvastatin 40 mg Tablet 80 MG PO (16:20)
[2023-12-08] MEDS: tamsulosin 0.4 mg Capsule 0.400000000000000022 MG PO (16:20)
[2023-12-08 16:36] LABS: Glucose Point of Care 130 mg/dL (70-110)
--- NOTE | 2023-12-08 17:34 | P.PNCC_ITS ---
Critical Care Event Note Radiology Impressions Chest X-Ray 12/07/23 16:40 IMPRESSION: No acute findings. Abdomen/Pelvis CT 12/08/23 11:58 IMPRESSION: 1. Simon catheter balloon inflated in the penile urethra. There is associated traumatic rupture of the penile urethra, with gas, fluid and blood extending into the perineum and posterior scrotal wall. 2. Fluid collection in the posterior scrotal wall. Probable mixed seroma/hematoma. Developing abscess not excluded. 3. Moderate bilateral hydronephrosis and hydroureter. Findings are likely related to elevated intravesical pressure from bladder outlet obstruction. No calcified ureteral stone. Bilateral distal ureter stricture and reflux not excluded. 4. Mild discontinuous bladder wall thickening. Nonspecific finding. Muscular hypertrophy is most likely. Bladder neoplasm not excluded. 5. Indeterminate 11 mm right renal lesion. Recommend non-emergent MRI without and with contrast or non-emergent CT without and with contrast. MRI is preferred for masses under 1.5 cm. 6. Localized left upper retroperitoneal lymphadenopathy. This may be neoplastic or reactive. 7. Incidental findings above. COMMENTS: 1. Consistent with the [employer]'s Incidental Findings Committee white paper (J Am Gianni Radiol 2017): For any incidental adrenal lesion greater than or equal to 1 cm but less than or equal to 4 cm classified in this report as benign, likely benign, or containing fat (including classification as an adenoma or myelolipoma), no follow-up imaging is recommended per consensus recommendations based on imaging criteria. Further lab evaluation could be pursued if warranted based on clinical findings. 2. Consistent with the [employer]'s Incidental Findings Committee white paper (J Am Gianni Radiol 2018): Any incidental renal lesion less than 1 cm or classified as too small to characterize, or any incidental cystic renal lesion characterized as simple-appearing, is likely benign. No follow-up imaging is recommended for these lesions per consensus recommendations based on imaging criteria. ADDENDUM: 12/08/23 0083 THIS REPORT CONTAINS FINDINGS THAT MAY BE CRITICAL TO PATIENT CARE. The findings and recommendations were verbally communicated by me via telephone conference with TANK CUEVAS at 4:50 PM CDT on 12/08/2023. The findings were acknowledged and understood. Patient CT results came back showing traumatic rupture of the penile urethra with catheter balloon in penile urethra . Gas/fluid and blood extending into the perineum and posterior scrotal wall. Patient currently does not have any hematuria. Cannot rule out acute versus chronic bleed versus acute versus chronic penile injury. Discussed the same with radiologist.Additionally posterior scrotal collection which may represent abscess. Patient needs further workup with urology. Discussed with both patient at bedside and his over the phone that given the above findings he will need further workup with urology and unfortunately we do not have a urologist at [facility] and for this he would need to be transferred to a tertiary center. Both patient and the right now not sure about transfer. They will discuss with each other and consider. wishes to take him to [place] and drive herself. I did confer with them that in the current situation he is not stable to transfer by himself to [place] to follow-up with his own urologist as traveling unmonitored can cause him to have more trauma and bleed, become septic. Moreover patient is still on amiodarone drip trying to control A-fib with RVR. Both patient and will discuss amongst themselves further before making a decision. Plan: Continue with amiodarone drip. Continue with Simon catheterization. While family of deciding we will continue to try to get a bed for potential transfer at a tertiary center for urology workup. If and once the bed is available we will discuss with the patient again. The high probability of a clinically significant, sudden or life threatening deterioration of the patient's [cardiac, urology] system(s) required my full and direct attention, intervention and personal management. The critical care time is as shown. This time is in addition to time spent performing any reported procedures but includes the following: [x] Data and vital sign review and interpretation [x] Patient assessment, examination and intervention [x] Documentation [x] Medication orders and management 60 Critical Care Time Code activated: No Critical Care Time (min): 60 Additional information about critical care time: Multiple discussion with both patient and over the phone. Discussion with multiple physicians at outside hospital for possible transfer Coding Level of Care Code Acute Code for Chg Pedro
[2023-12-08] MEDS: HYDROmorphone 1 mg/mL INJ 1 mL IVP (18:44)
[2023-12-08] MEDS: vancomycin 1,500 MG/300 ML PIGGYBACK 200 MG IV (18:45)
--- NOTE | 2023-12-08 19:31 | P.TS_ITS ---
Transfer Summary Providers Date of Admission: 12/07/23 17:41 Date of Discharge/Transfer: 12/08/23 Attending Provider at Admission: Linnea Cuevas MD Attending Provider at Transfer: Linnea Cuevas MD Transfer Plans: Anticipated date of transfer: 12/08/23 . Diagnoses at Discharge Discharge Diagnosis (1) Atrial fibrillation: Status: Acute (2) Hypoglycemia: Status: Acute (3) Cystitis: Status: Acute (4) Traumatic rupture of male urethra: Status: Acute (5) Scrotal abscess: Status: Acute Reason for Visit Reason for Visit hypoglycemia, hypotension Hospital Course Hospital Course Mr. Mcelroy is a 68 year old male resident of [place], driving truck through [place] who was brought to the ER yesterday having an episode of syncope while eating lunch. He was found to be hypoglycemic with blood sugar of 47, improved with dextrose pushes and then maintained on d10 infusion. Currently hypoglycemia resolved. HE has a h/o DM on glimeperide. Hba1c 5.7. Likely hypoglycemia related to glipizide use with normal A1c. He also had A fib with RVR with HR 150-[address] segment depression. ST segment corrected with improved HR. He was started on cardizem infusion initially, changed to amiodarone infusion when he had runs of SVT vs A fib/RVR on telemetry monitoring with HR up to 180 with minimal exertion. He is currently in sinus rhythm on amiodarone infusion with HR ~100/min. This is new onset for him. May be precipitated by acute infection. He was started on Lovenox 1mg/kg s/c q12h for a/c. Echocardiogram is pending. Trop series 11-->10-->14, not concerning for ACS. No active chest pain. He has a h/o prostate ca, s/p radiation therapy and chronic cystitis with recurrent UTI. He does intermittent self cath at home. He is on chronic bactrim suppression per urology in [place]. Also has a ? bladder stimulator for spams vs incontinence. HE c/o dysuria. UA with + leukocyte esterase, abundant WBC c/f UTI. URine cx and blood cx pending, thus far negative. He is on empiric meropenem and added vancomycin this evening. Leukocytosis persisting 18-->19K. Today he had worsening dysuria and HR 180s with minimal effort such as moving to bedside commode for bladder and bowel movements. Pt does intermittent self cath at home. Simon catheter was inserted. CT scan was performed to evaluate for obstructive hydronephrosis given past h/o recurrent complicated UTIs. Ct revealed ruptured Simon catheter balloon inflated in the penile urethra. There is associated traumatic rupture of the penile urethra, with gas, fluid and blood extending into the perineum and posterior scrotal wall. Right posterior scrotal wall fluid containing an air-fluid level measuring 5.1 x 2.6 cm, Developing abscess not excluded.Also noted Moderate bilateral hydronephrosis and hydroureter. No current hematuria. Uncertain chronicity of findings per discussion with radiology. Given these findings, patient needs a urologist to be involved in his care to assess for scrotal abscess and penile urethra injury. We do not have urology services here at [facility], therefore patient is being transferred to [facility] for the same. He has been accepted at [facility] in [place] under the hospitalist service. All updates discussed with patient and his - they are both agreeable for transfer. Physical Exam Narrative: General: No acute distress, AO x3 HEENT: PERRLA, pupils bilaterally equal and reactive, pallors not present Chest: Normal vesicular breath sounds, no added sounds, equal good air entry bilaterally CVS: S1-S2 regular, no murmurs, no tachycardia, no gallops, no rubs Abdomen: Soft, nontender, no organomegaly, bowel sounds present Neuro: No focal deficits, no facial deformity, AO x3, power 5/5 in all limbs TS Data Studies Completed and Pending Pending at discharge Category Date Time Status Blood Culture Stat Lab 12/07/23 18:50 Results Urine Culture Stat Lab 12/07/23 17:04 Received CV. echo complete* [id number] Routine Ultrasound 12/08/23 06:00 Ordered Completed Studies During Hospitalization Category Date Time Status CT abdomen renal stone [CT kidney stone [id number]] Routine Cat Scan 12/08/23 11:58 Completed XR chest 1V portable [id number] Stat Exams 12/07/23 16:40 Completed Laboratory Last Values WBC 19.23 10^3/uL (3.29-11.43) H 12/08/23 06:32 RBC 3.19 10^6/uL (3.85-5.65) L 12/08/23 06:32 Hgb 9.30 g/dL (11.27-16.99) L 12/08/23 06:32 Hct 29.3 % (37-53) L 12/08/23 06:32 MCV 91.8 fl (82-101) 12/08/23 06:32 MCH 29.2 pg (27-33) 12/08/23 06:32 MCHC 31.7 g/dL (30-55) 12/08/23 06:32 RDW 15.1 % (12.1-15.1) 12/08/23 06:32 Plt Count 400 10^3/cmm (157-399) H 12/08/23 06:32 MPV 9.2 fL (7.4-10.4) 12/08/23 06:32 Neut % (Auto) 90.8 % 12/08/23 06:32 Lymph % (Auto) 4.8 % 12/08/23 06:32 [place] % (Auto) 2.7 % 12/08/23 06:32 Eos % (Auto) 0.3 % 12/08/23 06:32 Baso % (Auto) 0.2 % 12/08/23 06:32 Neut # (Auto) 17.48 10^3/uL (1.8-7.7) H 12/08/23 06:32 Lymph # (Auto) 0.9 10^3/uL (0.8-4.8) 12/08/23 06:32 [place] # (Auto) 0.5 10^3/uL (0.2-0.9) 12/08/23 06:32 Eos # (Auto) 0.1 10^3/uL (0.0-0.8) 12/08/23 06:32 Baso # (Auto) 0.0 10^3/uL (0.0-0.1) 12/08/23 06:32 Nucleated RBC % (auto) 0 % 12/08/23 06:32 Nucleated RBCs # 0.0 /100WBC 12/08/23 06:32 APTT 47.6 SECONDS (23.9-36.7) H 12/08/23 12:53 Specimen Type Arterial 12/07/23 17:00 Sample Site Radial, left 12/07/23 17:00 ABG pH 7.38 (7.35-7.45) 12/07/23 17:00 ABG pCO2 29.1 mmHg (35-45) L 12/07/23 17:00 ABG pO2 106.0 mmHg (80.0-100.0) H 12/07/23 17:00 ABG PO2/FiO2 Ratio 0 12/07/23 17:00 ABG HCO3 17.3 mmol/L (22-26) L 12/07/23 17:00 ABG O2 Saturation 97.8 12/07/23 17:00 ABG Base Excess -6.8 mmol/L (-2.0-2.0) L 12/07/23 17:00 Angel Test Pos 12/07/23 17:00 A-a O2 Gradient 0.8 mmHg (5-10) L 12/07/23 17:00 Hematocrit 31.5 % (42-52) L 12/07/23 17:00 Hgb O2 Saturation 97.2 % (95-100) 12/07/23 17:00 Carboxyhemoglobin 0.1 %THgb (0.4-20.1) L 12/07/23 17:00 Methemoglobin 0.6 % (0.4-1.5) 12/07/23 17:00 Total Hemoglobin 10.3 g/dL (14-18) L 12/07/23 17:00 Sodium 141.0 mmol/L (131-143) 12/07/23 17:00 Potassium 3.4 mmol/L (3.5-5.0) L 12/07/23 17:00 Glucose 51.0 mg/dL (70-115) L 12/07/23 17:00 Ionized Calcium 1.2 mmol/L (1.1-1.4) 12/07/23 17:00 O2 Delivery Device Room air 12/07/23 17:00 FiO2 21.0 % 12/07/23 17:00 Public Affairs Officer ID [place] 12/07/23 17:00 Sodium 136 mmol/L (136-145) 12/08/23 06:32 Potassium 3.8 mmol/L (3.5-5.1) 12/08/23 06:32 Chloride 104 mmol/L (98-107) 12/08/23 06:32 Carbon Dioxide 16 mmol/L (22-29) L 12/08/23 06:32 Anion Gap 19.8 (5-19) H 12/08/23 06:32 BUN 26 mg/dL (8-23) H 12/08/23 06:32 Creatinine 1.2 mg/dL (0.7-1.2) 12/08/23 06:32 GFR Calculation 60.0 mL/min (90-130) L 12/08/23 06:32 Glucose 38 mg/dL (65-115) L* 12/08/23 06:32 POC Glucose 130 mg/dL (70-110) H 12/08/23 16:21 Estimat Average Glucose 117 12/07/23 16:44 Hemoglobin A1c 5.7 % (4.0-6.0) 12/07/23 16:44 Calculated Osmolality 283 mOsm/kg (285-295) L 12/08/23 06:32 Lactic Acid 1.3 mmol/L (0.5-2.2) 12/07/23 16:44 Calcium 8.6 mg/dL (8.5-10.5) 12/08/23 06:32 Total Bilirubin 0.2 mg/dL (0.15-1.2) 12/08/23 06:32 AST 18 U/L (0-40) 12/08/23 06:32 ALT 12 U/L (0-41) 12/08/23 06:32 Alkaline Phosphatase 127 U/L (40-130) 12/08/23 06:32 Creatine Kinase 228 U/L (39-308) 12/07/23 16:44 Troponin T Baseline 11 ng/L (0-15) 12/07/23 16:44 Troponin T 120 Minute 10.04 ng/L (0-15) 12/07/23 18:50 Delta Troponin T -0.96 ABS# (0-10) L 12/07/23 18:50 Troponin T Hi Sens 6Hr 14.52 ng/L (0-15) 12/07/23 23:10 Troponin T Hi Sens 6Hr Delta 3.52 ng/L (0-12) 12/07/23 23:10 Total Protein 7.0 g/dL (6.6-8.7) 12/08/23 06:32 Albumin 3.0 g/dL (3.5-5.2) L 12/08/23 06:32 Globulin 4.0 g/dL (1.3-4.6) 12/08/23 06:32 Triglycerides 134 mg/dL (0-150) 12/07/23 16:44 Cholesterol 140 mg/dL (0-200) 12/07/23 16:44 LDL Cholesterol, Calc 74 mg/dL (50-129) 12/07/23 16:44 HDL Cholesterol 39 mg/dL (60-100) L 12/07/23 16:44 LDL/HDL Ratio 1.90 RATIO (0.00-3.22) 12/07/23 16: Cholesterol/HDL Ratio 3.59 mg/dL (1.0-5.00) 12/07/23 16:44 Urine Color Yellow (Yellow) 12/07/23 17:04 Urine Appearance Cloudy (CLEAR) A 12/07/23 17:04 Urine pH 6 (5-7) 12/07/23 17:04 Ur Specific [place] 1.015 (1.005-1.030) 12/07/23 17:04 Urine Protein 1+ (Negative) H 12/07/23 17:04 Urine Glucose (UA) Norm (Normal) 12/07/23 17:04 Urine Ketones Negative (Negative) 12/07/23 17:04 Urine Blood 3+ (Negative) H 12/07/23 17:04 Urine Nitrate Negative (Negative) 12/07/23 17:04 Urine Bilirubin Neg (Negative) 12/07/23 17:04 Urine Urobilinogen Norm mg/dL (Negative) 12/07/23 17:04 Ur Leukocyte Esterase 2+ (Negative) H 12/07/23 17:04 Urine RBC 0-4 /hpf (0-2) H 12/07/23 17:04 Urine WBC Too numerous to cnt /hpf (0-5) H 12/07/23 17:04 Ur Squamous Epith Cells None /hpf (0-5) 12/07/23 17:04 Amorphous Sediment Not Reportable 12/07/23 17:04 Urine Bacteria 2+ /hpf (NONE) H 12/07/23 17:04 Urine Opiates Screen Negative ng/mL (Negative) 12/07/23 17:04 Ur Barbiturates Screen Negative ng/mL (Negative) 12/07/23 17:04 Ur Phencyclidine Scrn Negative ng/mL (Negative) 12/07/23 17:04 Ur Amphetamines Screen Negative ng/mL (Negative) 12/07/23 17:04 U Benzodiazepines Scrn Positive ng/mL (Negative) H 12/07/23 17:04 Urine Cocaine Screen Negative ng/mL (Negative) 12/07/23 17:04 U Marijuana (THC) Screen Negative ng/mL (Negative) 12/07/23 17:04 Ethyl Alcohol < 10 mg/dL (0-10) 12/07/23 16:44 Serum Ketones Negative (Negative) 12/07/23 16:44 Radiology Impressions Chest X-Ray 12/07/23 16:40 IMPRESSION: No acute findings. Abdomen/Pelvis CT 12/08/23 11:58 IMPRESSION: 1. Simon catheter balloon inflated in the penile urethra. There is associated traumatic rupture of the penile urethra, with gas, fluid and blood extending into the perineum and posterior scrotal wall. 2. Fluid collection in the posterior scrotal wall. Probable mixed seroma/hematoma. Developing abscess not excluded. 3. Moderate bilateral hydronephrosis and hydroureter. Findings are likely related to elevated intravesical pressure from bladder outlet obstruction. No calcified ureteral stone. Bilateral distal ureter stricture and reflux not excluded. 4. Mild discontinuous bladder wall thickening. Nonspecific finding. Muscular hypertrophy is most likely. Bladder neoplasm not excluded. 5. Indeterminate 11 mm right renal lesion. Recommend non-emergent MRI without and with contrast or non-emergent CT without and with contrast. MRI is preferred for masses under 1.5 cm. 6. Localized left upper retroperitoneal lymphadenopathy. This may be neoplastic or reactive. 7. Incidental findings above. COMMENTS: 1. Consistent with the [employer]'s Incidental Findings Committee white paper (J Am Gianni Radiol 2017): For any incidental adrenal lesion greater than or equal to 1 cm but less than or equal to 4 cm classified in this report as benign, likely benign, or containing fat (including classification as an adenoma or myelolipoma), no follow-up imaging is recommended per consensus recommendations based on imaging criteria. Further lab evaluation could be pursued if warranted based on clinical findings. 2. Consistent with the [employer]'s Incidental Findings Committee white paper (J Am Gianni Radiol 2018): Any incidental renal lesion less than 1 cm or classified as too small to characterize, or any incidental cystic renal lesion characterized as simple-appearing, is likely benign. No follow-up imaging is recommended for these lesions per consensus recommendations based on imaging criteria. ADDENDUM: 12/08/23 9503 THIS REPORT CONTAINS FINDINGS THAT MAY BE CRITICAL TO PATIENT CARE. The findings and recommendations were verbally communicated by me via telephone conference with LINNEA CUEVAS at 4:50 PM CDT on 12/08/2023. The findings were acknowledged and understood. Recent Clincial Data Last Vital Signs Temp 98.6 F 12/08/23 16:00 Pulse 102 H 12/08/23 16:00 Resp 18 12/08/23 18:44 BP 142/86 12/08/23 16:00 Pulse Ox 96 12/08/23 16:00 O2 Del Method Room Air 12/08/23 16:00 O2 Flow Rate 2 12/08/23 00:00 Vital Signs Temp Pulse Resp BP Pulse Ox O2 Del Method 12/08/23 18:44 18 12/08/23 16:00 98.6 F 102 H 18 142/86 96 Room Air 12/08/23 11:24 99.0 F 124 H 20 H 126/76 97 Room Air 12/08/23 08:00 99.3 F 86 139/53 12/08/23 07:39 99.3 F 86 139/53 96 Room Air Intake & Output/Weight 12/06/23 12/07/23 12/08/23 12/09/23 06:59 06:59 06:59 06:59 Intake Total 1489.556 / 4589.049 6660.75 / 1288.75 Output Total 800 / 800 Balance 1489.556 / 1489.556 488.75 / 488.75 Weight 82.463 kg Vitals Last Vital Signs Temp 98.6 F 12/08/23 16:00 Pulse 102 H 12/08/23 16:00 Resp 18 12/08/23 18:44 BP 142/86 12/08/23 16:00 Pulse Ox 96 12/08/23 16:00 O2 Del Method Room Air 12/08/23 16:00 O2 Flow Rate 2 12/08/23 00:00 TS Medications Medications Acetaminophen (Acetaminophen 325 Mg Tablet) 650 mg PO Q6H PRN PRN Reason: Mild/Mod Pain Or Temp >/= 101 Aspirin (Aspirin 81 Mg Ec Tablet) 81 mg PO DAILY [facility] Last Admin: 12/08/23 08:33 Dose: 81 mg Atorvastatin Calcium (Atorvastatin 40 Mg Tablet) 80 mg PO QPM [facility] Last Admin: 12/08/23 16:20 Dose: 80 mg Enoxaparin Sodium (Enoxaparin 80 Mg/0.8 Ml Syringe) 80 mg SUBCUT Q12H [facility] Last Admin: 12/08/23 13:28 Dose: 80 mg Hydromorphone HCl (Hydromorphone 1 Mg/Ml Inj 1 Ml) 1 mg IVP Q6H PRN PRN Reason: PAIN Last Admin: 12/08/23 18:44 Dose: 1 mg Dextrose (D5w) 500 mls @ 0 mls/hr IV ONCE PRN; Protocol PRN Reason: Adult Acute Hypoglycemia Prot Last Infusion: 12/07/23 22:25 Dose: Infused Dextrose (D10w) 125 mls @ 750 mls/hr IV PRN PRN; Protocol PRN Reason: Adult Acute Hypoglycemia Nursing Protocol Dextrose (D10w) 250 mls @ 1,000 mls/hr IV PRN PRN; Protocol PRN Reason: Adult Acute Hypoglycemia Nursing Protocol Last Infusion: 12/08/23 05:29 Dose: Infused Meropenem 1,000 mg/ Sodium (Chloride) 50 mls @ 100 mls/hr IV Q8H [facility]; Protocol Last Infusion: 12/08/23 12:18 Dose: Infused Dextrose (D10w) 1,000 mls @ 50 mls/hr IV .Q20H [facility] Last Admin: 12/08/23 11:45 Dose: 50 mls/hr Amiodarone HCl/Dextrose (Nexterone) 360 mg in 200 mls @ 0 mls/hr IV .Q0M [facility]; Protocol Last Admin: 12/08/23 16:31 Dose: 1 mg/min, 33.33 mls/hr Vancomycin/PEG/NADA/Lysine/Water (Vancocin) 1,500 mg in 300 mls @ 200 mls/hr IV Q18H [facility] Last Admin: 12/08/23 18:45 Dose: 200 mls/hr Morphine Sulfate (Morphine 4 Mg/Ml Sdv 1 Ml) 2 mg IVP Q4H PRN PRN Reason: SEVERE PAIN Last Admin: 12/08/23 16:19 Dose: 2 mg Naloxone HCl (Naloxone 0.4 Mg/Ml Sdv) 0.1 mg IVP Q2M PRN PRN Reason: OPIATERV Non-Formulary Medication (Enzalutamide [Xtandi]) 160 mg PO QPM [facility] Last Admin: 12/08/23 16:20 Dose: Not Given Non-Formulary Medication (Tolterodine) 4 mg PO QPM [facility] Last Admin: 12/08/23 17:13 Dose: Not Given Ondansetron HCl (Ondansetron 2 Mg/Ml Sdv 2 Ml) 4 mg IVP Q8H PRN PRN Reason: vomiting, or N/V if npo Pantoprazole Sodium (Pantoprazole Dr 40 Mg Tablet) 40 mg PO DAILY [facility] Last Admin: 12/08/23 08:33 Dose: 40 mg Tamsulosin HCl (Tamsulosin 0.4 Mg Capsule) 0.4 mg PO QPM [facility] Last Admin: 12/08/23 16:20 Dose: 0.4 mg Tramadol HCl (Tramadol 50 Mg Tablet) 50 mg PO BID PRN PRN Reason: Pain Last Admin: 12/08/23 15:06 Dose: 50 mg Discontinued Medications Diltiazem HCl (Diltiazem 5 Mg/Ml Sdv 5 Ml) 20 mg IVP ONCE ONE Stop: 12/07/23 16:46 Last Admin: 12/07/23 17:15 Dose: 20 mg Diltiazem HCl (Diltiazem 30 Mg Tablet) 30 mg PO Q6H [facility] Last Admin: 12/08/23 11:25 Dose: 30 mg Heparin Sodium (Porcine) (Heparin 5,000 Unit/Ml Inj 1 Ml) 0 unit IV PRN PRN; Protocol PRN Reason: Heparin weight-base protocol Last Admin: 12/07/23 17:16 Dose: 4,000 unit Heparin Sodium/Sodium Chloride (Heparin Drip) 25,000 unit in 500 mls @ 0 mls/hr IV .Q0M [facility]; Protocol Last Titration: 12/08/23 00:13 Dose: 12.25 unit/kg/hr, 20 mls/hr Diltiazem HCl 100 mg/ Sodium (Chloride) 100 mls @ 0 mls/hr IV .Q0M [facility]; Protocol Last Titration: 12/07/23 22:25 Dose: 2.5 mg/hr, 2.5 mls/hr Sodium Chloride (Sodium Chloride 0.9%) 500 mls @ 999 mls/hr IV .Q31M ONE Stop: 12/07/23 17:54 Last Infusion: 12/07/23 18:53 Dose: Infused Ceftriaxone Sodium 1,000 mg/ (Sodium Chloride) 50 mls @ 100 mls/hr IV ONCE ONE; Protocol Stop: 12/07/23 18:31 Last Infusion: 12/07/23 22:25 Dose: Infused Ceftriaxone Sodium 1,000 mg/ (Sodium Chloride) 50 mls @ 100 mls/hr IV Q24H [facility]; Protocol Last Admin: 12/07/23 21:12 Dose: Not Given Dextrose (D10w) 1,000 mls @ 125 mls/hr IV .Q8H [facility] Last Admin: 12/08/23 09:07 Dose: 125 mls/hr Amiodarone HCl/Dextrose (Nexterone) 150 mg in 100 mls @ 400 mls/hr IV ONCE ONE Stop: 12/08/23 12:58 Last Infusion: 12/08/23 16:30 Dose: Infused Allergies No Known Allergies Allergy (Verified 12/07/23 18:27) Home Medications ascorbic acid (vitamin C) 250 mg tablet (Vitamin C) 250 mg PO DAILY 12/08/23 [History Confirmed 12/08/23] calcium carbonate 600 mg calcium (1,500 mg) tablet (Calcium) 600 mg PO DAILY 12/08/23 [History Confirmed 12/08/23] diclofenac sodium 75 mg tablet,delayed release 75 mg PO BID 12/08/23 [History Confirmed 12/08/23] enzalutamide 40 mg tablet (Xtandi) 160 mg PO QPM 12/08/23 [History Confirmed 12/08/23] glimepiride 2 mg tablet 2 mg PO DAILY 12/08/23 [History Confirmed 12/08/23] rosuvastatin 20 mg tablet 20 mg PO QPM 12/08/23 [History Confirmed 12/08/23] sulfamethoxazole 800 mg-trimethoprim 160 mg tablet 1 tab PO QPM 12/08/23 [History Confirmed 12/08/23] tamsulosin 0.4 mg capsule 0.4 mg PO QPM 12/08/23 [History Confirmed 12/08/23] tolterodine 4 mg capsule,extended release 24 hr 4 mg PO QPM 12/08/23 [History Confirmed 12/08/23] tramadol 50 mg tablet 50 mg PO BID PRN Pain 12/08/23 [History Confirmed 12/08/23] vitamin B12 0.5 mg-folic acid 1 mg tablet 2 tab PO DAILY 12/08/23 [History Confirmed 12/08/23] Discharge Plan Discharge Patient Disposition: Home Condition: Stable Prescriptions: No Action tolterodine 4 mg capsule,extended release 24hr 4 mg PO QPM sulfamethoxazole-trimethoprim 800-160 mg tablet 1 tab PO QPM tramadol 50 mg tablet 50 mg PO BID PRN (Reason: Pain) glimepiride 2 mg tablet 2 mg PO DAILY Calcium 600 600 mg calcium (1,500 mg) Tablet 600 mg PO DAILY tamsulosin 0.4 mg capsule 0.4 mg PO QPM Vitamin C 250 mg Tablet 250 mg PO DAILY diclofenac sodium 75 mg tablet,delayed release (DR/EC) 75 mg PO BID rosuvastatin 20 mg tablet 20 mg PO QPM vitamin [id number] acid 0.5-1 mg Tablet 2 tab PO DAILY Xtandi 40 mg Tablet 160 mg PO QPM Discharge Orders: Transfer Out of Facility (Order); Ordered 12/08/23 Ordered By: Linnea Cuevas Patient Instructions: Opioid Safety Transfer Attestations Time Spent in Transfer Care: greater than 30 min Quality Metrics Clinical Quality Measures [ No reported AMI, CVA or VTE this stay] Coding Level of Care Code Acute Code for g Fwd Diagnoses Atrial fibrillation I48.91 Hypoglycemia E16.2 Cystitis N30.90 Traumatic rupture of male urethra S37.39XA Scrotal abscess N49.2
[2023-12-08 19:50] LABS: Glucose Point of Care 202 mg/dL (70-110)
--- NOTE | 2023-12-09 00:21 | PC.NURSE ---
late entry, patient transferred to [facility] for urology consult, report called to Jacqueline Brambila RN, transported via [facility] ground ambulance, left appx [phone]
[2023-12-09 00:24] VITALS: BP 116/74; PULSE 94; RESP 20; TEMP 37.3; O2SAT 95
--- NOTE | 2023-12-10 08:49 | PC.SOCIAL ---
Patient transferred to [facility] in [place]
== END 2023-12-09 00:25 | disposition short-term general hospital (02) | DRG 309 ==
LOC: ER 18:26 → CSU 18:27
PROVIDERS: Admitting Provider Student in an Organized Health Care Education/Training Program; Emergency Provider Family Medicine; Visit Provider Student in an Organized Health Care Education/Training Program
DX: I48.91 Unspecified atrial fibrillation (principal); N13.30 Unspecified hydronephrosis; N13.4 Hydroureter; S37.39XA Other injury of urethra, initial encounter; E16.2 Hypoglycemia, unspecified; N30.20 Other chronic cystitis without hematuria; I95.9 Hypotension, unspecified; Z85.46 Personal history of malignant neoplasm of prostate; Z79.2 Long term (current) use of antibiotics; N49.2 Inflammatory disorders of scrotum; Y84.6 Urinary catheterization as the cause of abnormal reaction of the patient, or of later complication, without mention of misadventure at the time of the procedure; Y73.2 Prosthetic and other implants, materials and accessory gastroenterology and urology devices associated with adverse incidents; Y92.239 Unspecified place in hospital as the place of occurrence of the external cause
CPT/HCPCS: 36415; 36416; 36600; 71045; 74176; 80051; 80053; 80061; 80306; 80307; 81001; 81015; 82009; 82330; 82550; 82805; 82962; 83036; 83605; 84484; 85025; 85730; 87040; 87086; 93005; 96365; 96366; 96367; 96372; 96376; 99285; J0283; J0696; J1170; J1610; J1644; J1650; J2185; J2270; J3370; J3490; J7040; J7060; J7799